=== PATIENT | female | born 1960 ===

== ENCOUNTER 2020-10-12 16:42 | Outpatient (NON) | payer MEDICARE, SELFPAY ==
[2020-10-12 17:47] LABS: Hematocrit 28.5 % (35.0-49.0); Hemoglobin 9.2 g/dL (12.0-15.0); Mean Corpuscular HGB Conc 32.3 g/dL (32.0-36.0); Mean Corpuscular Hemoglobin 27.8 pg (27.0-31.0); Mean Corpuscular Volume 86.1 fL (78.0-102.0); Platelet Count Result 651 K/mm3 (150-420); Red Blood Count 3.31 M/mm3 (4.20-5.40); Red Cell Distribution Width 30.9 % (11.6-14.4); White Blood Count 7.7 K/mm3 (4.8-10.8)
[2020-10-12 17:56] LABS: Alanine Aminotransferase 22 U/L (14-59); Albumin Level 2.7 g/dL (3.4-5.0); Alkaline Phosphatase 150 U/L (46-116); Anion Gap 15 mmol/L (8-16); Aspartate Amino Transferase 34 U/L (15-37); Bilirubin,Total 0.3 mg/dL (0.00-1.00); Blood Urea Nitrogen 4 mg/dL (7-18); Calcium 8.3 mg/dL (8.5-10.1); Carbon Dioxide 21 mmol/L (21-32); Chloride 106 mmol/L (98-108); Estimated Glomerular Filt Rate > 60; Glucose 66 mg/dL (70-99); Osmolality Calculated 288 mOsm/kg (285-295); Potassium 4.6 mmol/L (3.5-5.1); Sodium 142 mmol/L (136-145); Total Protein 6.6 g/dL (6.4-8.2)
[2020-10-12 18:40] LABS: Band Neutrophils Percent 0 % (0-6); Basophils Absolute Manual 0.07 K/mm3 (0-0.1); Basophils Percent Manual 1 % (0-1); Eosinophils Absolute Manual 0.15 K/mm3 (0.02-0.5); Eosinophils Percent Manual 2 % (1-6); Lymphocytes Absolute Manual 2.69 K/mm3 (1.1-4.5); Lymphocytes Percent Manual 35 % (18-44); Monocytes Absolute Manual 0.38 K/mm3 (0.1-0.90); Monocytes Percent Manual 5 % (3-9); Neutrophils Absolute Manual 4.38 K/mm3 (1.7-7.2); Neutrophils Percent Manual 57 % (46-73); Total Cells Counted 100
[2020-10-12 18:41] LABS: Anisocytosis 1+ (NORMAL); Platelet Estimate Increased (Adequate)
== END 2020-10-12 16:43 | disposition home or self-care (01) ==
DX: A04.72 Enterocolitis due to Clostridium difficile, not specified as recurrent (principal); I11.9 Hypertensive heart disease without heart failure
CPT/HCPCS: 36415; 80053; 85025